=== PATIENT | female | born 1985 | race Hispanic/Latino ===

== ENCOUNTER 2020-03-10 09:25 | Outpatient (CLI) | payer OTHER ==
--- NOTE | 2020-03-10 10:25 | ULT ---
Exam:Rightlower extremity venous ultrasound with Doppler HISTORY: Right leg swelling. Patient is 8 months COMPARISON: None TECHNIQUE: Grayscale, color flow, Doppler imaging and spectral wave muscle performed right lower extr emity venous system FINDINGS: There is compressibility, presence of flow and augmentation in the common femoral vein, femoral vein and popliteal vein. There is flow in the posterior tibial vein. There is flow in the greater saphenous vein and profunda femoral vein. There is sluggish flow in the right lower extremity venous system. IMPRESSION: No thrombus in the right lower extremity deep venous system. There is sluggish flow.
== END 2020-03-10 09:26 | disposition home or self-care (01) ==
LOC: BICULT 09:25
PROVIDERS: ATTEND Student in an Organized Health Care Education/Training Program
DX: R60.0 Localized edema (principal)

== ENCOUNTER 2020-04-01 10:16 | Inpatient (IN) | payer OTHER ==
[2020-04-01 10:48] VITALS: BMI 44.4
[2020-04-01] MEDS ORDERED: hydrALAZINE 20 MG/ML VIAL SLOW IVP PRN ×2 (13:23→15:38)
[2020-04-01] MEDS ORDERED: Ondansetron PF 4 MG/2 ML Vial IVP PRN (15:38)
[2020-04-01] MEDS ORDERED: Butorphanol Tartrate 1 MG/ML VIAL SLOW IVP PRN (15:38)
[2020-04-01] MEDS ORDERED: Promethazine HCl 25 MG/ML VIAL IM PRN (15:38)
[2020-04-01] MEDS ORDERED: Dextrose 50% Abboject 50 ML SYRINGE SLOW IVP PRN (15:40)
[2020-04-01] MEDS ORDERED: Dextrose 5% in Water 1,000 ML IV PRN (15:40)
[2020-04-01] MEDS ORDERED: Insulin Regular 300 UNITS/3 ML VIAL SC PRN (15:40)
[2020-04-01 16:37] LABS: Hemoglobin 10.9 g/dL (12.0-16.0); Mean Corpuscular HGB CONC 33.3 g/dL (32.0-36.0); Mean Corpuscular Hemoglobin 26.6 pg (27.0-31.0); Mean Corpuscular Volume 79.9 fL (78.0-98.0); Mean Platelet Volume 12.3 fL (7.4-10.4); Platelet Count 130 thou/uL (130-400); RBC Distribution Width 13.3 % (11.5-14.5); Red Blood Cell (RBC) Count 4.11 mill/uL (4.20-5.40); White Blood Cell (WBC) Count 10.6 thou/uL (4.8-10.8)
[2020-04-01] MEDS ORDERED: NPH, Human Insulin Isophane 300 UNIT/3 ML VIAL SC SCH ×2 (17:00→21:00)
[2020-04-01] MEDS ORDERED: Insulin Regular 300 UNITS/3 ML VIAL SC SCH (17:00)
[2020-04-01 17:10] LABS: HBSAg Index 0.18 S/CO (0-0.99); Hep B Surf Ag Non-Reactive S/CO (NonReactive); Syphilis Antibody Nonreactive (Nonreactive); Syphilis Antibody Index 0.11 S/CO (<1.00 Non-Reactive)
[2020-04-02] MEDS ORDERED: NPH, Human Insulin Isophane 300 UNIT/3 ML VIAL SC SCH (07:30)
[2020-04-02] MEDS ORDERED: Insulin Regular 300 UNITS/3 ML VIAL SC SCH ×2 (07:30→09:00)
[2020-04-02] MEDS ORDERED: HYDROcodone/Acetaminophen 5/325 mg Tablet PO PRN ×3 (08:31→18:25)
[2020-04-02] MEDS ORDERED: Lidocaine 1% (PF) 30 ML VIAL SC PRN (08:31)
[2020-04-02] MEDS ORDERED: Methylergonovine 0.2 MG/ML VIAL IM PRN (08:31)
[2020-04-02] MEDS ORDERED: Ibuprofen 800 MG TAB PO PRN (08:31)
[2020-04-02] MEDS ORDERED: Misoprostol 200 MCG TAB PR PRN (08:31)
[2020-04-02] MEDS ORDERED: Carboprost 250 MCG/ML AMP IM PRN (08:31)
[2020-04-02] MEDS ORDERED: Diphenoxylate HCl/Atropine Tablet PO PRN (08:31)
--- NOTE | 2020-04-02 08:42 | PDOC.LDHP ---
Labor and Delivery H&P Chief complaint: contractions HPI: 35yo at 38w0d presented yesterday with painful contractions. Pt has cont to have painful ctx but has remained at 5cm overnight. T2DM, insulin requiring. Current gestational age (weeks): 38 Due date: 04/16/20 Dating criteria: last menstrual period Grav: 5 Para: 3 Current complications: none Abnormal US findings: Yes (polyhydramnios, s>d) Past Medical History: T2DM, class B obesity Current medications: pre- vitamins, other (reg/nph insulin, asa 81mg) Previous surgical history: cholecystectomy Allergies/Adverse Reactions: Allergies Allergy/AdvReac Type Severity Reaction Status Date / Time No Known Allergies Allergy Verified 04/01/20 10:42 Social history: none - Physical Exam Vital signs reviewed and normal: yes General: NAD Heart: RRR Lungs: CTAB Abdomen: gravid Extremeties: no edema FHT: category 1 [place] contractions every: 10min - Vaginal Exam cm dilated: 5 Effacement: 50% Station: -2 - OB Labs Blood type: O RH: positive Antibody Screen: negative HIV: negative RPR: negative HEPSAg: negative GBS: negative Urine drug screen: negative Rubella: immune - Assessment L&D Assessment: term patient in labor - Plan Plan: admit to L&D, labor augmentation if indicated, informed consent obtained, anesthesia consult for pain management, other (accuchecks and insulin sliding scale prn)
[2020-04-02] MEDS ORDERED: NS w/ Oxytocin 10 units 500 ML IV SCH (08:45)
[2020-04-02] MEDS: Lactated Ringer's 1,000 ML IV SCH ×3 (09:35→19:32)
--- NOTE | 2020-04-02 09:46 | PDOC.LDPN ---
Labor & Delivery Progress Note - Subjective Subjective: comfortable - Objective Vital signs reviewed and normal: yes General: NAD Uterine fundus: non tender Dilation: 4 Effacement: 50% Station: -3 FHT: category 1 [place] contractions every: 10min AROM: clear fluid Plan: pitocin for augmentation
[2020-04-02] MEDS ORDERED: Lidocaine 1% (PF) 30 ML VIAL ONE (16:05)
[2020-04-02] MEDS: NS / Oxytocin 40 units/1000ml 1,000 ML IV PRN ×2 (16:10→18:12)
--- NOTE | 2020-04-02 16:22 | PDOC.OPDEL ---
OB Operative/Delivery Note Delivery Dr/Surgeon: Nael Assist: n/a Pre-Delivery Diagnosis: medically indicated induction (T2DM) Procedure/Post Delivery Dx: spontaneous vaginal delivery Weeks gestation: 38 Anesthesia: none - Findings A Sex: male - Additional Findings/Plan Placenta delivered: spontaneous Estimated blood loss: 200cc Compilations/Other Findings: NC x 1 Post delivery plan: routine recovery
[2020-04-02] MEDS ORDERED: Benzocaine-Menthol 82.5 ML CAN TOP PRN (18:25)
[2020-04-02] MEDS ORDERED: Ondansetron PF 4 MG/2 ML Vial IVP PRN (18:25)
[2020-04-02] MEDS ORDERED: Milk Of Magnesia 30 ML UDCUP PO PRN (18:25)
[2020-04-02] MEDS ORDERED: Bisacodyl 10 MG SUPP PR PRN (18:25)
[2020-04-02] MEDS ORDERED: NS / Oxytocin 40 units/1000ml 1,000 ML IV SCH (18:25)
[2020-04-02] MEDS ORDERED: hydrALAZINE 20 MG/ML VIAL SLOW IVP PRN (18:25)
[2020-04-02] MEDS ORDERED: diphenhydrAMINE 25 MG CAP PO PRN (18:25)
[2020-04-02] MEDS ORDERED: Lanolin Ointment 7 GM TUBE TOP PRN (18:25)
[2020-04-02] MEDS ORDERED: Preparation H Ointment 28 GM TUBE PR PRN (18:25)
[2020-04-02] MEDS ORDERED: metFORMIN 500 MG TAB PO SCH (18:45)
[2020-04-02] MEDS ORDERED: Ferrous Sulfate 325 MG TAB PO SCH (18:45)
[2020-04-02 20:03] LABS: SARS-CoV-2 MS2 Positive; SARS-CoV-2 N Gene Negative; SARS-CoV-2 S Gene Negative; SARS-CoV-2 orf1ab Negative
[2020-04-02 20:04] LABS: SARS-CoV-2 by NAA Not Detected (NotDetected)
[2020-04-02] MEDS: Docusate Calcium (SURFAK) 240 MG CAP PO SCH (21:32)
[2020-04-02] MEDS: Ibuprofen 800 MG TAB PO SCH (21:32)
[2020-04-03] MEDS: Ibuprofen 800 MG TAB PO SCH ×3 (05:04→21:01)
[2020-04-03] MEDS: Ferrous Sulfate 325 MG TAB PO SCH ×2 (07:24→07:25)
[2020-04-03] MEDS ORDERED: Adacel (T-DAP) 0.5 ML SYRINGE IM ONE (09:00)
[2020-04-03] MEDS: metFORMIN 500 MG TAB PO SCH ×2 (09:02→16:38)
[2020-04-03] MEDS: Docusate Calcium (SURFAK) 240 MG CAP PO SCH ×2 (09:02→21:01)
[2020-04-03] MEDS: Prenatal Vitamin 1 TAB PO SCH (09:02)
--- NOTE | 2020-04-03 21:23 | PDOC.BPN ---
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 However, the baby is still in observation so DC held earlier today. Likely DC home tomorrow Saturday. Patient on Metformin for Class B DM. Case reviewed with Sulma, the patient's RN I have reviewed her vitals: BPs stable and wnl, afebile.
[2020-04-04] MEDS: Ibuprofen 800 MG TAB PO SCH (05:07)
[2020-04-04] MEDS: Ferrous Sulfate 325 MG TAB PO SCH (07:23)
[2020-04-04 07:50] VITALS: BP 126/62; TEMP 98
[2020-04-04] MEDS: Prenatal Vitamin 1 TAB PO SCH (07:54)
[2020-04-04] MEDS: metFORMIN 500 MG TAB PO SCH (07:54)
[2020-04-04] MEDS: Docusate Calcium (SURFAK) 240 MG CAP PO SCH (07:54)
--- NOTE | 2020-04-04 12:28 | PDOC.PP ---
Post Progress Note Post Day #: 2 PO intake tolerated: yes Flatus: yes Ambulation: yes Vital Signs (12 hours) Temp Pulse Resp BP Pulse Ox 04/04/20 07:48 98.0 F 76 18 126/62 99 Weight Weight 267 lb - Physical Examination General: NAD Cardiovascular: RRR Respiratory: non-labored breathing Abdominal: no distention, appropriately TTP Skin: no rash Neurological: no gross focal deficits Psychiatric: normal affect Result Diagrams: 04/01/20 16:07 Additional Labs: Post Labs Hep Bs Antigen Non-Reactive S/CO (NonReactive) 04/01/20 16:07 Blood Type O POSITIVE 04/01/20 16:07 - Assessment/Plan PPD2 s/p TSVD VSSAF T2DM on metformin, BS wnl, cont on DC Doing well PP lochia < menses Rh pos RImm DC home FU 6w
== END 2020-04-04 13:20 | disposition home or self-care (01) | DRG 805 ==
LOC: L&D/OP 10:16 → L&D 15:38 → 3SW 04-02 18:35
PROVIDERS: ADMIT Student in an Organized Health Care Education/Training Program; ATTEND Student in an Organized Health Care Education/Training Program
PROC: 10E0XZZ Delivery of Products of Conception, External Approach (ICD-10-PCS; principal; 2020-04-02)
PROC: 10907ZC Drainage of Amniotic Fluid, Therapeutic from Products of Conception, Via Natural or Artificial Opening (ICD-10-PCS; 2020-04-02)
DX: O69.81X0 Labor and delivery complicated by cord around neck, without compression, not applicable or unspecified (principal); O24.12 Pre-existing type 2 diabetes mellitus, in childbirth; Z37.0 Single live birth; O40.3XX0 Polyhydramnios, third trimester, not applicable or unspecified; Z20.828 Contact with and (suspected) exposure to other viral communicable diseases; O99.214 Obesity complicating childbirth; E66.9 Obesity, unspecified; E11.9 Type 2 diabetes mellitus without complications; Z3A.38 38 weeks gestation of pregnancy; Z79.4 Long term (current) use of insulin; Z90.49 Acquired absence of other specified parts of digestive tract
CPT/HCPCS: 36415; 36416; 85027; 86780; 86850; 86900; 86901; 87340; 87635; 99285; J1815; J2590; U0003